=== PATIENT | male | born 1995 | race Hispanic/Latino ===

== ENCOUNTER → 2023-06-12 | Emergency (ER) | payer OTHER, SELFPAY ==
[~2023-06-12] MED LIST: CEFTRIAXONE 1000 MG/VIAL ONE; FENTANYL CITR 100 MCG/2 ML ONE; KETOROLAC 30 MG/ML INJ ONE; NA CHLORIDE 0.9% 1,000 ML ONE; ONDANSETRON 4 MG/2 ML VIAL ONE; TAMSULOSIN 0.4 MG SR CAP ONE
--- NOTE | 2023-06-12 11:27 | RAD REPORT ---
[facility] - [facility]12/[facility]23 11:16 am CLINICAL HISTORY: Abd pain;Flank pain COMPARISON: No comparisons TECHNIQUE: CT of the abdomen and pelvis was performed. All CT scans are performed using dose optimization technique as appropriate and may include automated exposure control or mA/KV adjustment according to patient size. FINDINGS: Lower chest: No acute abnormality. Liver: No acute abnormality or suspicious lesions. Biliary: No biliary ductal dilatation. Stomach: No significant focal abnormality. Duodenum: No significant focal abnormality. Pancreas: No significant abnormality. Spleen: No significant abnormality. Adrenal: No suspicious lesions. Kidney/ureter: Mild left-sided hydronephrosis secondary to a 3 mm stone in the left proximal ureter. No renal calculi identified. Retroperitoneum: No retroperitoneal adenopathy. Vascular: No aneurysm. Bowel: Fatty deposition within the calvo of the colon and distal small bowel could be related to sequ que of chronic inflammation or corticosteroid use. Normal appendix.. Peritoneum: No ascites or free air. Small fat containing umbilical hernia. Bladder: Grossly unremarkable. Reproductive: No adnexal masses. Bones: No acute fracture. Other: n/a IMPRESSION: Mild left-sided hydronephrosis secondary to a 3 mm stone left proximal ureter.
[2023-06-12 11:45] LABS: Absolute Lymphocytes (CBC) 1.3 K/uL (0.7-4.9); Hematocrit 44.8 % (39.6-49.0); Lymphocytes % 11.2 % (15.3-44.8); MCV 90.1 fL (80-100); MPV 7.9 fL (7.6-11.3); Platelets 263 thou/uL (152-406); RBC Red Blood Cell Count 4.97 M/uL (4.33-5.43)
[2023-06-12 12:02] LABS: Bilirubin Total 1.5 mg/dL (0.2-1.0); Potassium 4.1 mEq/L (3.5-5.1)
--- NOTE | 2023-06-12 12:02 | ER ---
Nurse's Notes [facility] Name: Fredi Sharma Age: 28 yrs Sex: Male : 1995 Arrival Date: 06/12/2023 Time: 10:46 Bed 18 Private MD: Diagnosis: Hydronephrosis with renal and ureteral calculous obstruction-3 MM LEFT PROXIMAL URETER CALCULI Presentation: 06/12 11:05 Chief complaint: Patient states: he has lower back pain and left sided pain that ap3 started yesterday. patient rates the pain as a 8/10 on the pain scale at this time. patient denies difficulty urinating, but reports nausea this morning. Coronavirus screen: At this time, the client does not indicate any symptoms associated with coronavirus-19. Ebola Screen: No symptoms or risks identified at this time. Initial Sepsis Screen: Does the patient meet any 2 criteria? No. Patient's initial sepsis screen is negative. Does the patient have a suspected source of infection? No. Patient's initial sepsis screen is negative. Risk Assessment: Do you want to hurt yourself or someone else? Patient reports no desire to harm self or others. Onset of symptoms was June 11, 2023. 11:05 Method Of Arrival: Ambulatory ap3 11:05 Acuity: ANDREW 3 ap3 Triage Assessment: 11:08 General: Appears in no apparent distress. Behavior is calm, cooperative, appropriate ap3 for age. Pain: Complains of pain in back Pain currently is 8 out of 10 on a pain scale. Neuro: Level of Consciousness is awake, alert, obeys commands, Oriented to person, place, time, situation. Cardiovascular: Patient's skin is warm and dry. Respiratory: Airway is patent Respiratory effort is even, unlabored, Respiratory pattern is regular, symmetrical. Musculoskeletal: Reports pain in back. Historical: - Allergies: 11:08 No Known Allergies; ap3 - Home Meds: 11:08 None [Active]; ap3 - PMHx: 11:08 None; ap3 - Immunization history:: Adult Immunizations up to date. - Social history:: Smoking status: Patient denies any tobacco usage or history of. Screenin:09 [facility] ED Fall Risk Assessment (Adult) History of falling in the last 3 months, ap3 including since admission No falls in past 3 months (0 pts). Abuse screen: Denies threats or abuse. Nutritional screening: No deficits noted. Tuberculosis screening: No symptoms or risk factors identified. Assessment: 11:41 General: Appears in no apparent distress. uncomfortable, Behavior is calm, cooperative, ld1 appropriate for age. Pain: Complains of pain in back and abdomen Pain radiates to back Pain currently is 8 out of 10 on a pain scale. Quality of pain is described as sharp, shooting, throbbing, Pain began suddenly, Is continuous. Neuro: Level of Consciousness is awake, alert, obeys commands, Oriented to person, place, time, situation. Cardiovascular: Capillary refill < 3 seconds Patient's skin is warm and dry. Respiratory: Airway is patent Respiratory effort is even, unlabored. GI: Abdomen is round obese, Reports nausea, vomiting. : No signs and/or symptoms were reported regarding the genitourinary system. EENT: No signs and/or symptoms were reported regarding the EENT system. Derm: No signs and/or symptoms reported regarding the dermatologic system. Musculoskeletal: No signs and/or symptoms reported regarding the musculoskeletal system. 12:15 Reassessment: Patient appears in no apparent distress at this time. No changes from ld1 previously documented assessment. Patient and/or family updated on plan of care and expected duration. Pain level reassessed. Vital Signs: 11:05 BP 135 / 100; Pulse 84; Resp 19; Temp 97.7(O); Pulse Ox 100% on R/A; Weight 108.86 kg; ap3 Height 5 ft. 8 in. ; Pain 8/10; 11:41 BP 128 / 65; Pulse 64; Resp 18; Pulse Ox 97% on R/A; Pain 8/10; ld1 12:14 BP 132 / 92; Pulse 84; Resp 18; Pulse Ox 98% on R/A; Pain 8/10; ld1 13:18 BP 137 / 73; Pulse 82; Resp 18; Pulse Ox 100% on R/A; ld1 11:05 Body Mass Index 36.49 (108.86 kg, 172.72 cm) ap3 11:05 Pain Scale: Adult ap3 11:41 Pain Scale: Adult ld1 12:14 Pain Scale: Adult ld1 ED Course: 10:48 Patient arrived in ED. mg5 10:48 Orion Blunt MD is Attending Physician. amadou 11:08 Triage completed. ap3 11:09 Arm band placed on right wrist. ap3 11:10 Abimbola Saavedra, MALKA is Primary Nurse. ld1 11:17 CT Stone Protocol In Process Unspecified. EDMS 11:41 Patient has correct armband on for positive identification. Placed in gown. Bed in low ld1 position. Call light in reach. Side rails up X2. quality assurance monitor chassis on. Pulse ox on. NIBP on. Door closed. Noise minimized. Warm blanket given. 11:41 Comprehensive Metabolic Panel Sent. ld1 11:41 CBC with Diff Sent. ld1 11:41 No provider procedures requiring assistance completed. Inserted saline lock: 20 gauge ld1 in right antecubital area, using aseptic technique. Blood collected. 12:04 Helio Bonner MD is Referral Physician. amadou 13:19 IV discontinued, intact, bleeding controlled, No redness/swelling at site. ld1 Administered Medications: 11:40 Drug: NS 0.9% IV 1000 ml IV at 1 bolus Per protocol; 1000 mL bolus Route: IV; Rate: 1 ld1 bolus; Site: right antecubital; 11:40 Drug: Ketorolac IVP 30 mg IVP once Route: IVP; Site: right antecubital; ld1 11:41 Drug: Ondansetron IVP 4 mg IVP once; over 2 minutes Route: IVP; Site: right antecubital;ld1 12:14 Drug: fentaNYL (PF) IVP 50 mcg IVP once Route: IVP; Site: right antecubital; ld1 12:14 Drug: Flomax PO 0.4 mg PO once Route: PO; ld1 12:14 Drug: Rocephin IV 1 grams IV at per protocol once; Given slow IV push per pharmacy ld1 instructions Route: IV; Rate: per protocol; Site: right antecubital; 12:14 Drug: NS 0.9% IV 1000 ml IV at 1 bolus Per protocol; 1000 mL bolus Route: IV; Rate: 1 ld1 bolus; Site: right antecubital; Medication: 11:41 VIS not applicable for this client. ld1 Outcome: 12:01 Discharge ordered by . amadou 13:19 Discharged to home ambulatory, ld1 13:19 Condition: stable 13:19 Discharge instructions given to patient, family, Instructed on discharge instructions, follow up and referral plans. medication usage, Demonstrated understanding of instructions, follow-up care, medications, Prescriptions given X 4, 13:19 Patient left the ED. ld1 Signatures: Dispatcher [employer] EDOrion Cosby MD MD cha Prokisch, Amanda RN RN ap3 Abimbola Saavedra RN RN ld1 Luciana Henry 5
--- NOTE | 2023-06-12 12:02 | EDPHYS ---
Physician Documentation [facility] Name: Fredi Sharma Age: 28 yrs Sex: Male : 1995 Arrival Date: 06/12/2023 Time: 10:46 Bed 18 Private MD: ED Physician Orion Blunt HPI: 06/12 11:56 This 28 yrs old Male presents to ER via Ambulatory with complaints of Low Back amadou Pain, Side Pain. 11:56 The patient presents with pain that is acute, with no known mechanism of injury. The amadou symptoms are located in the left mid back. The pain does not radiate. The problem was sustained from unknown cause. Onset: The symptoms/episode began/occurred this morning. Modifying factors: The patient symptoms are alleviated by nothing, the patient symptoms are aggravated by nothing. Severity of symptoms: At their worst the symptoms were mild, in the emergency department the symptoms are unchanged. The patient has not experienced similar symptoms in the past. Historical: - Allergies: 11:08 No Known Allergies; ap3 - Home Meds: 11:08 None [Active]; ap3 - PMHx: 11:08 None; ap3 - Immunization history:: Adult Immunizations up to date. - Social history:: Smoking status: Patient denies any tobacco usage or history of. ROS: 11:56 Constitutional: Negative for fever, chills, and weight loss, Eyes: Negative for injury, amadou pain, redness, and discharge, ENT: Negative for injury, pain, and discharge, Neck: Negative for injury, pain, and swelling, Cardiovascular: Negative for chest pain, palpitations, and edema, Respiratory: Negative for shortness of breath, cough, wheezing, and pleuritic chest pain, Abdomen/GI: Negative for abdominal pain, nausea, vomiting, diarrhea, and constipation, : Negative for injury, bleeding, discharge, and swelling, MS/Extremity: Negative for injury and deformity, Skin: Negative for injury, rash, and discoloration, Neuro: Negative for headache, weakness, numbness, tingling, and seizure, Psych: Negative for depression, anxiety, suicide ideation, homicidal ideation, and hallucinations, Allergy/Immunology: Negative for hives, rash, and allergies, Endocrine: Negative for neck swelling, polydipsia, polyuria, polyphagia, and marked weight changes, Hematologic/Lymphatic: Negative for swollen nodes, abnormal bleeding, and unusual bruising, 11:56 Back: Positive for flank pain, on the left, radiated pain, of the left low back and left mid back, Exam: 11:56 Constitutional: This is a well developed, well nourished patient who is awake, alert, amadou and in no acute distress. Head/Face: Normocephalic, atraumatic. Eyes: Pupils equal round and reactive to light, extra-ocular motions intact. Lids and lashes normal. Conjunctiva and sclera are non-icteric and not injected. Cornea within normal limits. Periorbital areas with no swelling, redness, or edema. ENT: Nares patent. No nasal discharge, no septal abnormalities noted. Tympanic membranes are normal and external auditory canals are clear. Oropharynx with no redness, swelling, or masses, exudates, or evidence of obstruction, uvula midline. Mucous membranes moist. Neck: Trachea midline, no thyromegaly or masses palpated, and no cervical lymphadenopathy. Supple, full range of motion without nuchal rigidity, or vertebral point tenderness. No Meningismus. Chest/axilla: Normal chest wall appearance and motion. Nontender with no deformity. No lesions are appreciated. Cardiovascular: Regular rate and rhythm with a normal S1 and S2. No gallops, murmurs, or rubs. Normal PMI, no JVD. No pulse deficits. Respiratory: Lungs have equal breath sounds bilaterally, clear to auscultation and percussion. No rales, rhonchi or wheezes noted. No increased work of breathing, no retractions or nasal flaring. Abdomen/GI: Soft, non-tender, with normal bowel sounds. No distension or tympany. No guarding or rebound. No evidence of tenderness throughout. Male : Normal genitalia with no discharge or lesions. Skin: Warm, dry with normal turgor. Normal color with no rashes, no lesions, and no evidence of cellulitis. MS/ Extremity: Pulses equal, no cyanosis. Neurovascular intact. Full, normal range of motion. Neuro: Awake and alert, GCS 15, oriented to person, place, time, and situation. Cranial nerves II-XII grossly intact. Motor strength 5/5 in all extremities. Sensory grossly intact. Cerebellar exam normal. Normal gait. Psych: Awake, alert, with orientation to person, place and time. Behavior, mood, and affect are within normal limits. 11:56 Back: pain, that is moderate, ROM is normal, normal spinal alignment noted, CVA tenderness, that is mild, is noted on the left, Vital Signs: 11:05 BP 135 / 100; Pulse 84; Resp 19; Temp 97.7(O); Pulse Ox 100% on R/A; Weight 108.86 kg; ap3 Height 5 ft. 8 in. ; Pain 8/10; 11:41 BP 128 / 65; Pulse 64; Resp 18; Pulse Ox 97% on R/A; Pain 8/10; ld1 12:14 BP 132 / 92; Pulse 84; Resp 18; Pulse Ox 98% on R/A; Pain 8/10; ld1 13:18 BP 137 / 73; Pulse 82; Resp 18; Pulse Ox 100% on R/A; ld1 11:05 Body Mass Index 36.49 (108.86 kg, 172.72 cm) ap3 11:05 Pain Scale: Adult ap3 11:41 Pain Scale: Adult ld1 12:14 Pain Scale: Adult ld1 MDM: 11:03 Patient medically screened. [facility] 11:57 Differential diagnosis: UTI, nephrolithiasis, pyelonephritis, UTI, diverticulitis. Data [facility] reviewed: vital signs, nurses notes, lab test result(s), radiologic studies, CT scan. Consideration of Admission/Observation Escalation of care including admission/observation considered. I considered the following discharge prescriptions or medication management in the emergency department Medications were administered in the Emergency Department. See MAR. Independent interpretation of the following test(s) in the Emergency Department CT Scan: My interpretation is STONE. Test considered but Not performed: Ultrasound NO RENAL USG. Historians other than the Patient: PT WELL INFORMED. Care significantly affected by the following chronic conditions: Diabetes. Counseling: I had a detailed discussion with the patient and/or guardian regarding the historical points, exam findings, and any diagnostic results supporting the discharge/admit diagnosis, lab results, radiology results, the need for outpatient follow up, for definitive care, a family practitioner, a urologist. 06/12 10:52 Order name: CBC with Diff; Complete Time: 11:54 [facility] 06/12 10:52 Order name: Comprehensive Metabolic Panel [facility] 06/12 10:52 Order name: Urinalysis w/ reflexes [facility] 06/12 10:52 Order name: CT Stone Protocol; Complete Time: 11:54 amadou Administered Medications: 11:40 Drug: NS 0.9% IV 1000 ml IV at 1 bolus Per protocol; 1000 mL bolus Route: IV; Rate: 1 ld1 bolus; Site: right antecubital; 11:40 Drug: Ketorolac IVP 30 mg IVP once Route: IVP; Site: right antecubital; ld1 11:41 Drug: Ondansetron IVP 4 mg IVP once; over 2 minutes Route: IVP; Site: right antecubital;ld1 12:14 Drug: fentaNYL (PF) IVP 50 mcg IVP once Route: IVP; Site: right antecubital; ld1 12:14 Drug: Flomax PO 0.4 mg PO once Route: PO; ld1 12:14 Drug: Rocephin IV 1 grams IV at per protocol once; Given slow IV push per pharmacy ld1 instructions Route: IV; Rate: per protocol; Site: right antecubital; 12:14 Drug: NS 0.9% IV 1000 ml IV at 1 bolus Per protocol; 1000 mL bolus Route: IV; Rate: 1 ld1 bolus; Site: right antecubital; Disposition Summary: 06/12/23 12:01 Discharge Ordered Notes: Location: Home amadou Problem: new amadou Symptoms: have improved amadou Condition: Stable amadou Diagnosis - Hydronephrosis with renal and ureteral calculous obstruction - 3 MM LEFT PROXIMAL amadou URETER CALCULI Followup: amadou - With: Private Physician - When: 2 - 3 days - Reason: Recheck today's complaints, Continuance of care, Re-evaluation by your physician Followup: amadou - With: Helio Bonner MD - When: 2 - 3 days - Reason: Recheck today's complaints, Re-evaluation by your physician Discharge Instructions: - Discharge Summary Sheet amadou - Kidney Stones amadou - Kidney Stones, Inis-st-Nttr amadou - Hydronephrosis amadou - Dietary Guidelines to Help Prevent Kidney Stones amadou Forms: - Medication Reconciliation Form amadou - Thank You Letter amadou - Antibiotic Education amadou - Prescription Opioid Use amadou - Patient Portal Instructions amadou - Leadership Thank You Letter amadou Prescriptions: - Flomax 0.4 mg Oral capsule - take 1 capsule ORAL route every 24 hours; 20 capsule; Refills: 0, Product amadou Selection Permitted - acetaminophen-codeine 300-30 mg Oral tablet - take 2 tablet ORAL route every 6 hours as needed for pain; 20 tablet; Refills: [facility] 0, Product Selection Permitted - ondansetron 4 mg Oral Tablet,disintegrating - take 1 tablet ORAL route every 6-8 hours for 5 days; 20 tablet; Refills: 0, [facility] Product Selection Permitted - Cipro 500 mg Oral Tablet - take 1 tablet ORAL route every 12 hours for 7 days; 14 tablet; Refills: 0, [facility] Product Selection Permitted Signatures: Dispatcher [employer] Orion Miller MD MD cha Prokisch, Amanda RN RN ap3 Abimbola Saavedra RN RN ld1
[2023-06-12 12:50] LABS: Specific Gravity > 1.030 (1.005-1.030); Urine Bacteria <20 /HPF (<20); Urine Bilirubin NEGATIVE (Negative); Urine Blood 3+ (OVER) (Negative); Urine Clarity Extremely Turbid (Clear); Urine Color Light-Orange (Yellow); Urine Glucose NEGATIVE (Negative); Urine Mucus 4+ /HPF (None Seen); Urine Protein 2+ (Negative); Urine RBC >50 /HPF (None Seen); Urine Urobilinogen 1+ (Normal)
[2023-06-12 16:12] VITALS: TEMP 97.7
[2023-06-12 16:16] VITALS: BP 137/73; O2SAT 100
== END ==
LOC: ER 10:46
DX: N13.2 Hydronephrosis with renal and ureteral calculous obstruction (principal)
CPT/HCPCS: 36415; 74176; 76377; 80053; 81001; 85025; 96374; 96375; 99285; J0696; J2405; J3010; J7030

== ENCOUNTER 2023-12-07 07:39 | Emergency (ER) | payer SELFPAY ==
[2023-12-07] MEDS ORDERED: MORPHINE 4 MG/ML SYR ONE (07:59)
[2023-12-07] MEDS ORDERED: ONDANSETRON 4 MG/2 ML VIAL ONE (07:59)
[2023-12-07] MEDS ORDERED: KETOROLAC 30 MG/ML INJ ONE (07:59)
[2023-12-07 08:03] LABS: Absolute Lymphocytes (CBC) 1.5 K/uL (0.7-4.9); Absolute Monocytes 0.6 K/uL (0.1-1.3); Absolute Neutrophil 6.5 K/uL (1.8-8.0); Basophils % 0.3 % (0-1.3); Eosinophils % 0.1 % (0-4.4); Hematocrit 44.1 % (39.6-49.0); Hemoglobin 14.7 g/dL (13.6-17.9); Lymphocytes % 17.7 % (15.3-44.8); MCH 29.7 pg (27.0-35.0); MCHC 33.3 g/dL (32.0-36.0); MCV 89.2 fL (80-100); MPV 7.8 fL (7.6-11.3); Monocytes % 6.4 % (3.3-12.3); Neutrophils % 75.5 % (41.7-73.7); Platelets 315 thou/uL (152-406); RBC Red Blood Cell Count 4.95 M/uL (4.33-5.43); Red Cell Distribution Width 12.8 % (12.1-15.2)
[2023-12-07 08:18] LABS: Albumin 3.9 g/dL (3.4-5.0); Albumin/Globulin Ratio 1.1 (1.1-1.8); Anion Gap 9.8 mEq/L (5.0-15.0); Bilirubin Total 1.3 mg/dL (0.2-1.0); Globulin 3.4 g/dL (2.3-3.5); Potassium 3.8 mEq/L (3.5-5.1); Protein, Total 7.3 g/dL (6.4-8.2)
--- NOTE | 2023-12-07 08:21 | RAD REPORT ---
EXAM DESCRIPTION: CT - Abdomen Pelvis Wo Contrast - 12/07/2023 8:06 am CLINICAL HISTORY: Abdominal pain COMPARISON: August 2023 TECHNIQUE: Computed axial tomography of the abdomen and pelvis was obtained. IV and oral contrast we re not requested. All CT scans are performed using dose optimization technique as appropriate and may include automated exposure control or mA/KV adjustment according to patient size. FINDINGS: The evaluation of solid organs, vessels and bowel is limited secondary to the lack of con trast administration. Mild left hydronephrosis. 5 millimeter calculus distal left ureter has migrated distally since the pr ior exam. Renal calculus is not seen. Liver, spleen, pancreas and adrenals grossly normal. The appendix is normal. There is no evidence of diverticulitis. Small umbilical hernia IMPRESSION: 5 millimeter calculus distal left ureter resulting in mild left hydronephrosis
[2023-12-07 09:40] LABS: Specific Gravity > 1.030 (1.005-1.030); Sqamous Epithelial <5 /HPF (None Seen); Urine Bacteria None Seen /HPF (<20); Urine Bilirubin NEGATIVE (Negative); Urine Blood 1+ (Negative); Urine Clarity Extremely Turbid (Clear); Urine Color Yellow (Yellow); Urine Culture Reflex Order NOT NEEDED; Urine Glucose TRACE (Negative); Urine Ketones TRACE (Negative); Urine Micro Reflex YN NO BILL MICROSCOPIC; Urine Mucus 4+ /HPF (None Seen); Urine Nitrite NEGATIVE (Negative); Urine Protein 1+ (Negative); Urine RBC 21-50 /HPF (None Seen); Urine Urobilinogen 1+ (Normal); Urine WBC <5 /HPF (<5)
--- NOTE | 2023-12-07 09:51 | ER ---
[facility] Name: Fredi Sharma Jr Age: 28 yrs Sex: Male : 1995 Arrival Date: 12/07/2023 Time: 07:39 Bed 18 Private MD: Diagnosis: Calculus of ureter Presentation: 12/06 07:52 Chief complaint: Patient states: LUQ PAIN RADIATING TO L FLANK SINCE 0400 WITH N/V, bp SAME PAIN PREVIOUS KIDNEY STONE. Coronavirus screen: At this time, the client does not indicate any symptoms associated with coronavirus-19. Ebola Screen: No symptoms or risks identified at this time. Initial Sepsis Screen: Does the patient meet any 2 criteria? No. Patient's initial sepsis screen is negative. Does the patient have a suspected source of infection? No. Patient's initial sepsis screen is negative. Risk Assessment: Do you want to hurt yourself or someone else? Patient reports no desire to harm self or others. Onset of symptoms was December 07, 2023 at 04:00. 07:52 Method Of Arrival: Ambulatory bp 07:52 Acuity: ANDREW 3 bp Triage Assessment: 07:53 General: Appears distressed, uncomfortable, obese, Behavior is cooperative, appropriate bp for age, anxious. Pain: Complains of pain in posterior aspect of left lateral abdomen and left upper quadrant. EENT: No deficits noted. Neuro: No deficits noted. Cardiovascular: No deficits noted. Respiratory: No deficits noted. GI: Reports upper abdominal pain, nausea, vomiting. : No signs and/or symptoms were reported regarding the genitourinary system. Derm: No deficits noted. Musculoskeletal: No deficits noted. Historical: - Allergies: 07:53 No Known Allergies; bp - Home Meds: 07:53 None [Active]; bp - PMHx: 07:53 Kidney stone; bp - Immunization history:: Adult Immunizations up to date. - Infectious Disease History:: Denies. - Social history:: Smoking status: Patient denies any tobacco usage or history of. Screenin:54 [facility] ED Fall Risk Assessment (Adult) History of falling in the last 3 months, bp including since admission No falls in past 3 months (0 pts). Abuse screen: Denies threats or abuse. Denies injuries from another. Nutritional screening: No deficits noted. Tuberculosis screening: No symptoms or risk factors identified. Assessment: 07:54 General: Appears uncomfortable, Behavior is calm, cooperative, appropriate for age. bp Pain: Complains of pain in left upper quadrant and posterior aspect of left lateral abdomen. 09:34 Reassessment: Patient appears in no apparent distress at this time. Patient is alert, bp oriented x 3, equal unlabored respirations, skin warm/dry/pink. 09:57 GI: Bowel sounds present X 4 quads. Abd is soft X 4 quads. bp Vital Signs: 07:52 BP 148 / 101; Pulse 84; Resp 16; Temp 98; Pulse Ox 99% ; Weight 113.4 kg; Height 5 ft. bp 9 in. ; 09:34 BP 137 / 95; Pulse 81; Resp 16; Pulse Ox 98% ; bp 07:52 Body Mass Index 36.92 (113.40 kg, 175.26 cm) bp ED Course: 07:40 Patient arrived in ED. mr 07:41 Tomer Iglesias MD is Attending Physician. ec2 07:48 Marshall Espinal, MALKA is Primary Nurse. bp 07:53 Triage completed. bp 07:53 Arm band placed on. bp 07:54 Patient has correct armband on for positive identification. bp 07:54 Inserted saline lock: 20 gauge in right antecubital area, using aseptic technique. bp Blood collected. 08:00 Initial lab(s) drawn, by ED staff, sent to lab. bp 08:08 CT Abd/Pelvis - Without Contrast In Process Unspecified. EDMS 09:32 Urine collected: clean catch specimen, marky colored. bp 09:50 Helio Bonner MD is Referral Physician. ec2 09:56 No provider procedures requiring assistance completed. IV discontinued, intact, bp bleeding controlled, No redness/swelling at site. Pressure dressing applied. Administered Medications: 08:00 Drug: TORadol - Ketorolac IVP 15 mg IVP once Route: IVP; Site: right antecubital; bp 09:57 Follow up: Response: No adverse reaction bp 08:00 Drug: Ondansetron IVP 4 mg IVP once; over 2 minutes Route: IVP; Site: right antecubital;bp 09:57 Follow up: Response: No adverse reaction bp 08:00 Drug: morphine IVP or IV 4 mg IVP once over 4 mins Route: IVP; Infused Over: 4 mins; bp Site: right antecubital; :57 Follow up: Response: No adverse reaction bp Medication: 07:54 VIS not applicable for this client. bp Outcome: 09:50 Discharge ordered by . ec2 09:56 Discharged to home ambulatory, bp :56 Condition: stable 09:56 Discharge instructions given to patient, Instructed on discharge instructions, follow up and referral plans. medication usage, Demonstrated understanding of instructions, follow-up care, medications, Prescriptions given X 3, :57 Patient left the ED. bp Signatures: Dispatcher [employer] EDFunmi Ashley, Reg Reg Marshall Torres, RN RN bp Kelsie, MD ALAINA Jeff ec2
--- NOTE | 2023-12-07 09:51 | EDPHYS ---
Physician Documentation [facility] Name: Fredi Sharma Jr Age: 28 yrs Sex: Male : 1995 Arrival Date: 12/07/2023 Time: 07:39 Bed 18 Private MD: ED Physician Tomer Iglesias HPI: 12/06 07:52 This 28 yrs old Male presents to ER via Unassigned with complaints of ec2 Abdominal Pain, Vomiting. 07:52 Patient arrives today for evaluation of left-sided abdominal pain and flank pain. ec2 Reports that he woke up this morning approximately 4 hours ago with pain in this area. Patient reports associated nausea and vomiting. Denies any previous abdominal surgeries. Reports that he has had previous kidney stones. Patient reports this feels similar.. Historical: - Allergies: 07:53 No Known Allergies; bp - Home Meds: 07:53 None [Active]; bp - PMHx: 07:53 Kidney stone; bp - Immunization history:: Adult Immunizations up to date. - Infectious Disease History:: Denies. - Social history:: Smoking status: Patient denies any tobacco usage or history of. ROS: 07:52 Constitutional: as per hpi ec2 Exam: 07:52 Constitutional: GEN: NAD Head: atraumatic Eyes: EOMI Ears: External ears are ec2 normal. CV: regular rate LUNGS: no respiratory distress ABD: non-distended, soft, tender left side of the abdomen, left flank TTP SKIN: no evidence of rashes MSK: no evidence of trauma NEURO: moves all extremities equally Vital Signs: 07:52 BP 148 / 101; Pulse 84; Resp 16; Temp 98; Pulse Ox 99% ; Weight 113.4 kg; Height 5 ft. bp 9 in. ; 09:34 BP 137 / 95; Pulse 81; Resp 16; Pulse Ox 98% ; bp 07:52 Body Mass Index 36.92 (113.40 kg, 175.26 cm) bp MDM: 07:41 Patient medically screened. ec2 07:52 Data reviewed: vital signs. ED course: Patient arrives today for evaluation of ec2 left-sided abdominal pain. Examination remarkable for well-appearing nontoxic and appears in left side of the abdomen. Will obtain lab work, urine studies, CT imaging and treat the patient's symptoms. Differential diagnosis including pyelonephritis, ureteral stone, urinary tract infection, diverticulitis.. 08:07 ED course: External records show patient was previously seen and diagnosed with ec2 ureteral stone, previously had a 3 mm left distal ureteral stone. . 08:23 ED course: CBC is reassuring. Metabolic profile shows appropriate electrolytes and ec2 renal function. Lipase is within normal ranges. CT scan independently reviewed and interpreted by me, pertinent findings show a 5 mm distal ureteral stone with mild hydronephrosis, Slight hydroureter noted. . 08:28 ED course: MDM: Differential diagnosis as documented above in ED course; All lab tests ec2 ordered and reviewed as documented above; Independent interpretation of tests: imaging as above; Parenteral controlled substances: Yes; External records reviewed: Previous ED visit Discuss inpatient hospitalization: Yes; . 09:48 ED course: Urine with blood present as expected, noninfectious. On reassessment patient ec2 with improvement in symptoms. Will discharge home, prescribed medications for the patient's pain. Will have patient follow-up with urology. Return precautions given. . 12/06 07:51 Order name: CBC with Diff; Complete Time: 08:23 ec2 12/06 07:51 Order name: CMP; Complete Time: 08:23 ec2 12/06 07:51 Order name: Lipase; Complete Time: 08:23 ec2 12/06 07:53 Order name: UAM; Complete Time: 09:48 ec2 12/06 07:51 Order name: CT Abd/Pelvis - Without Contrast; Complete Time: 08:23 ec2 12/06 07:51 Order name: IV Saline Lock; Complete Time: 07:56 ec2 12/06 07:51 Order name: Labs collected and sent; Complete Time: 07:56 ec2 Administered Medications: 08:00 Drug: TORadol - Ketorolac IVP 15 mg IVP once Route: IVP; Site: right antecubital; bp 09:57 Follow up: Response: No adverse reaction bp 08:00 Drug: Ondansetron IVP 4 mg IVP once; over 2 minutes Route: IVP; Site: right antecubital;bp 09:57 Follow up: Response: No adverse reaction bp 08:00 Drug: morphine IVP or IV 4 mg IVP once over 4 mins Route: IVP; Infused Over: 4 mins; bp Site: right antecubital; 09:57 Follow up: Response: No adverse reaction bp Disposition Summary: 12/07/23 09:50 Discharge Ordered Notes: Location: Home ec2 Condition: Stable ec2 Diagnosis - Calculus of ureter ec2 Followup: ec2 - With: Private Physician - When: - Reason: Re-evaluation by your physician Followup: ec2 - With: Helio Bonner MD - When: - Reason: Recheck today's complaints Discharge Instructions: - Discharge Summary Sheet ec2 - Kidney Stones, [id number] ec2 Forms: - Medication Reconciliation Form ec2 - Antibiotic Education ec2 - Prescription Opioid Use ec2 - Patient Portal Instructions ec2 - Leadership Thank You Letter ec2 Prescriptions: - acetaminophen-codeine 300-15 mg Oral tablet - take 1 tablet ORAL route every 6 hours; 15 tablet; Refills: 0, Product ec2 Selection Permitted - tamsulosin 0.4 mg Oral capsule - take 1 capsule ORAL route every 24 hours; 14 capsule; Refills: 0, Product ec2 Selection Permitted - Zofran 4 mg Oral Tablet - take 1 tablet ORAL route every 12 hours As needed; 20 tablet; Refills: 0, ec2 Product Selection Permitted Signatures: Dispatcher [employer] [facility] Marshall Espinal, RN RN bp Tomer Iglesias MD MD ec2 Corrections: (The following items were deleted from the chart) 07:52 07:52 CBC+H.LAB.BRZ ordered. [facility] EDMS 07:52 07:52 COMPREHENSIVE METABOLIC PANEL+C.LAB.BRZ ordered. [facility] EDSC 07:52 07:52 LIPASE+C.LAB.BRZ ordered. [facility] EDSC 07:52 07:52 Abdomen Pelvis Wo Con+CT.RAD.BRZ ordered. [facility] EDMS 08:27 08:23 ED course: CBC is reassuring. Metabolic profile shows appropriate electrolytes ec2 and renal function. Lipase is within normal ranges. CT scan shows a 5 mm distal ureteral stone with mild hydronephrosis. . ec2 08:27 08:23 ED course: CBC is reassuring. Metabolic profile shows appropriate electrolytes ec2 and renal function. Lipase is within normal ranges. CT scan independently reviewed and interpreted by me, pertinent findings show a 5 mm distal ureteral stone with mild hydronephrosis. . ec2
[2023-12-07 10:15] VITALS: BP 137/95; TEMP 98; O2SAT 98
== END 2023-12-07 09:57 | disposition home or self-care (01) ==
LOC: ER 07:39
DX: N20.1 Calculus of ureter (principal); Z87.442 Personal history of urinary calculi
CPT/HCPCS: 36415; 74176; 80053; 81001; 83690; 85025; 96374; 96375; 99284; J2405